=== PATIENT | male | born 1990 | race American Indian/Alaskan Native ===

== ENCOUNTER 2021-05-04 10:51 | Emergency (ER) | payer OTHER ==
[~2021-05-04] VITALS: Ht 160 cm; Wt 81.0 kg
[2021-05-04 10:59] VITALS: BP 138/90
[2021-05-04] MEDS ORDERED: penicillin V potassium 500mg tablet PO ONE (13:10)
[2021-05-04] MEDS ORDERED: dexamethasone 0.5 mg/5ml unit-dose oral solution PO STA (13:10)
[2021-05-04] MEDS ORDERED: dexamethasone sod phosphate 10mg/ml inj PO STA (13:17)
[2021-05-04] MEDS ORDERED: PENI500T2 PO (13:50)
== END 2021-05-04 14:01 | disposition home or self-care (01) ==
LOC: ER 10:52
DX: J36 Peritonsillar abscess (principal); F17.200 Nicotine dependence, unspecified, uncomplicated; Z72.89 Other problems related to lifestyle; Z88.0 Allergy status to penicillin
CPT/HCPCS: 99283; J1100